=== PATIENT | female | born 1970 | race Caucasian/White ===

== ENCOUNTER → 2019-04-17 | Outpatient (CLI) | payer BC ==
[~2019-04-17] MED LIST: XANAX 0.25 MG0.25 MG PO
--- NOTE | 2019-04-24 12:06 | PATH ---
[address] [address] PATHOLOGY RPT PROCEDURE Name: SHIRLENE SNOW [facility] BARREIra.#: [id number] Admission: 04/17/19 Date of : 72 Discharge: Report #: [id number] Path Case #: [id number] [facility] Accession Number: [id number] . 01 Material submitted: . PART A: lymph node - LYMPH NODE BX - RIGHT AXILLA. Modifiers: right, axilla PART B: breast - RIGHT BREAST TISSUE/MASS, 7:00. Modifiers: right, 7:00 . 01 Clinical history: . A. Right lymph node-axilla B. Right breast mass 7:00 2.41 x 1.68 x 2.38 cm . 02 Diagnosis: A. Right axillary lymph node, image-guided biopsy: - METASTATIC DUCTAL ADENOCARCINOMA TYPICAL OF BREAST PRIMARY SPANNING AT LEAST 7 MM OF LYMPH NODE. SEE COMMENT. . B. Right breast tissue/mass, 7:00, image-guided core biopsies: - INFILTRATING DUCTAL ADENOCARCINOMA, INTERMEDIATE GRADE, SPANNING 13 MM IN ASSOCIATION WITH DUCTAL CARCINOMA IN SITU (DCIS), NUCLEAR GRADE II, SOLID AND CRIBRIFORM TYPES. SEE COMMENT. . (SOFIYA:lester; 04/19/2019) MBR 04/19/2019 1319 Local . 02 Comment: Specimen B Specimen type: Image-guided core biopsy Tumor site: Right breast 7:00 Tumor quantitation: Approximately 95% of submitted tissues. Histologic type: Ductal adenocarcinoma. Histologic grade: Intermediate (II of III). Tubules, nuclei and mitoses: 2, 2, 2. LVSI: Not identified. Microcalcifications: Not identified. Markers: Breast tumor profile pending. Block: B1 . In specimen A, there is no definite evidence of extranodal extension. Breast tumor profile studies are pending on B1 and will be the subject of an addendum report. Nicole (acting [facility] breast navigator) notified at approximately 1410 on 04/20/2019. Specimens A and B reviewed with Dr. Daryl Sewell who agrees with the diagnoses. . (SOFIYA:lester; 04/19/2019) . 02 Addendum: [place] [address] PATHOLOGY RPT PROCEDURE Name: SHIRLENE SNOW Room: [facility] BARRESilvia#: [id number] Admission: 04/17/19 Date of : 72 Discharge: Report #: [id number] Path Case #: [id number] Special studies report received from [facility], [facility], [address], [place], [address], on case [id number], labeled with their number [id number], dated 04/23/2019. . Breast/Prognostic Marker Analysis . Specimen Site: Rt Breast - Breast Cancer Specimen ID #: [id number] . ER (Estrogen Receptor) Present/Positive Percent: 90.00% Analysis: Manual Comments: Staining Intensity: Weak to Moderate. . MA (Progesterone Receptor) Present/Positive Percent: 90.00% Analysis: Manual Comments: Staining Intensity: Moderate. . HER2 Not Over-Expressed Score: 0 Analysis: Manual . Ki-67 High Proliferation Percent: 25.00% Analysis: Manual . Time to Fixation (Cold Ischemic Time): 1 Minute Duration of Fixation: 9 Hours 26 Minutes Type of Fixative: 10% Neutral Buffered Formalin . at [employer]. Ab Pond MD Pathologist . Methodology The HER2 Receptor protein expression is analyzed using the [place] HER2 rabbit monoclonal antibody (clone 4B5). This assay is used for diagnostic determination of the HER2 protein over-expression in paraffin embedded, formalin fixed breast cancer tissue on the [place] Benchmark. The specimen is processed using a secondary antibody-HRP conjugate detection system. The membrane staining of the tumor is determined either by manual score or image analysis. This antibody is intended for in vitro diagnostic use. The score is reported as 0, 1+, 2+, or 3+. This test [place] [address] PATHOLOGY RPT PROCEDURE Name: SHIRLENE SNOW Room: [facility] ManavOj#: [id number] Admission: 04/17/19 Date of : 72 Discharge: Report #: [id number] Path Case #: [id number] purposes. . A rabbit monoclonal antibody (clone SP1) that recognized the Estrogen Receptor is used to perform immunohistochemistry on routinely fixed (formalin) paraffin embedded tissue on the [place] Benchmark. The specimen is processed using a secondary antibody-HRP conjugate detection system. The percentage of stained tumor nuclei is determined either manually or by image analysis. This test is intended for in vitro diagnostic use. This test is used for clinical purposes. . A rabbit monoclonal antibody (clone 1E2) that recognized the Progesterone Receptor is used to perform immunohistochemistry on routinely fixed (formalin) paraffin embedded tissue on the [place] Benchmark. The specimen is processed using a secondary antibody-HRP conjugate detection system. The percentage of stained tumor nuclei is determined either manually or by image analysis. This test is intended for in vitro diagnostic use. This test is used for clinical purposes. . A rabbit monoclonal antibody (clone 30-9) that recognized Ki67 is used to perform immunohistochemistry on routinely fixed (formalin) paraffin embedded tissue on the [place] Benchmark. The specimen is processed using a secondary antibody-HRP conjugate detection system. The percentage of stained tumor nuclei is determined either manually or by image analysis. This test is intended for in vitro diagnostic use. This test is used for clinical purposes. . Intended Use: This antibody is intended for in vitro diagnostic (IVD) use. HER2 (4B5) is a rabbit monoclonal antibody intended for the semi-quantitative detection of HER2 antigen in sections of formalin-fixed, paraffin embedded normal and neoplastic tissue. . This antibody is intended for in vitro diagnostic (IVD) use. Estrogen Receptor (ER) (SP1) is a rabbit monoclonal antibody (IgG) that is intended for the qualitative detection of estrogen receptor (ER) antigen in sections of formalin-fixed, paraffin-embedded tissue. ER is a rabbit monoclonal antibody that recognizes human estrogen receptor alpha. . This antibody is intended for in vitro diagnostic (IVD) use. Progesterone Receptor (MA) (1E2) is a rabbit monoclonal antibody (IgG) that is intended for the qualitative detection of progesterone receptor (MA) antigen in sections of formalin fixed, paraffin embedded tissue. MA is a rabbit monoclonal antibody that recognizes the A and B forms of the human progesterone receptor. . This antibody is intended for in vitro diagnostic (IVD) use. Ki-67 (30-9) is a rabbit monoclonal antibody (IgG) directed against C-terminal portion of Ki-67 antigen. Staining for Ki-67 can be used to aid in assessing the proliferative activity of normal and neoplastic tissue. Ki-67 [place] [address] PATHOLOGY RPT PROCEDURE Name: SHIRLENE SNOW Room: [facility].#: [id number] Admission: 04/17/19 Date of : 72 Discharge: Report #: [id number] Path Case #: [id number] protein expressed in proliferating cells. During the cell cycle, the Ki-67 antigen is present in the G1, S, G2 and M phase but is absent in the G0 (quiescent phase). . . Disclaimer: This Test was performed by [employer] at [address], [address]. . [facility] is a business unit of [employer] a wholly-owned subsidiary of [employer]. . This assay has not been validated on decalcified tissues. Results should be interpreted with caution if this specimen was decalcified given the likelihood of false negativity on decalcified specimens. . Any image(s) that accompany this report is/are a security systems sales representative image(s) only and should not be used to render a diagnosis. . This interpretation is contingent on the specimen and the clinical information received. . For any special tests/stains performed, known positive cells or tissues are tested with each marker and examined to ensure positivity. Positive and negative internal controls, if present, react appropriately. . This analysis is an adjunct to the evaluation of the referring physician and does not represent a final diagnosis. . The immunohistochemistry tests performed at [employer]. were validated on tissue fixed in 10% neutral buffered formalin. The performance characteristics of the tests performed on tissue processed in other fixatives is not known. . HER2 testing at [employer] [employer] is performed in compliance with the 2018 updated ASCO/CAP Clinical Practice Guideline Focused Update. If the result is EQUIVOCAL (2+), it must be confirmed by an alternative assay such as FISH or Dual DELORIS. REF: Morris DEL RIO, JAZ Ha et al: Human Epidermal Growth Factor Receptor 2 Testing in Breast Cancer: ASCO/CAP Clinical Practice Guideline Focused Update. J Clin Oncol 36:5887-0538, 2018. . HER2 and ER/MA ASCO/CAP guidelines require fixation in neutral buffered formalin for a minimum of 6 and a maximum of 72 hours. Fixation times less than 6 hours may not adequately preserve cell proteins. Fixation times longer than 72 hours may cause excess cross-linking of proteins reducing the antigen available for staining. Either scenario can cause reduced staining; hence false negative results are possible and should be [address] [place] [address] PATHOLOGY RPT PROCEDURE Name: EDYSHIRLENE SAAVEDRA Room: [facility] AMADEO Colon#: [id number] Admission: 04/17/19 Date of : 72 Discharge: Report #: [id number] Path Case #: [id number] considered for these situations if the HER2 IHC score is less than 3+ or ER or MA is negative (no staining or <1% positive). It is recommended that specimens fixed longer than 72 hours with HER2 IHC scores less than 3+ be confirmed by HER2 FISH or Dual DELORIS. The time from biopsy/excision to fixation in formalin (cold ischemic time) must be less than 1 hour. Time to fixation (cold ischemic time) greater than 1 hour should be interpreted with caution. HER2 testing, mainly HER2 by FISH, is particularly vulnerable since excessive cold ischemic time results in preferential loss of HER2 probe signals that may lead to false negative results. . SCORE STAINING PATTERN IN TUMOR CELLS INTERPRETATION RESULTS 0 No staining observed or incomplete, faint membrane staining in less than or equal to 10% of tumor cells. Negative 1+ Incomplete, faint membrane staining in greater than 10% of tumor cells. Negative 2+ Weak to moderate complete membrane staining observed in greater than 10% of tumor cells. Equivocal* *Must be confirmed by alternative assay (IHC/FISH/Dual DELORIS) 3+ Intense, complete membrane staining in greater than 10% of tumor cells. Positive . A complete copy of the report is on file. . Professional and Technical services performed by [employer]. at [address] [address]. . (SOFIYA:amj 04/24/2019) . AZJ/04/24/2019 Addendum Electronically Signed by Galen Daniels MD, Pathologist . 02 Electronically signed: . Galen Daniels MD, Pathologist NPI- [id number] . 01 Gross description: . A. Received in formalin labeled "Edy, Shirlene, lymph node BX," and additionally labeled on the requisition as "right axilla," are 3 needle cores of yellow-mcclain fibrofatty tissue ranging from 0.1 to 2.5 cm in length and measuring less than 0.1 cm each in diameter. The tissue is submitted in its entirety in cassettes A1-A3. Due to the minute nature of the segments in cassettes A2 and A3, they may [place] [address] PATHOLOGY RPT PROCEDURE Name: SHIRLENE SNOW Room: [facility]#: [id number] Admission: 04/17/19 Date of : 72 Discharge: Report #: [id number] Path Case #: [id number] . B. Received in formalin labeled "EdyShirlene, right breast biopsy," and additionally labeled on the requisition as "7:00," are 3 distinct needle cores of yellow-mcclain fibrofatty tissue ranging from 1.3-1.8 cm in length and measuring 0.2 cm in diameter. The tissue is submitted in its entirety in cassettes B1-B3. The cold ischemic time is 1 minute. The total formalin fixation time is 9 hours and 26 minutes. (TSD; 04/18/2019) TOB/TOB 04/19/2019 1306 Local . 02 Pathologist provided ICD-10: C77.3, C50.911, D05.11 . 02 CPT . 879341, 248453 Specimen Comment: A courtesy copy of this report has been sent to [phone] Specimen Comment: [phone], Specimen Comment: Report sent to ,DR MIMS / DR LABOY Performed at: 01 [facility] [place] [address], [place], [place] [id number] MD Chano Monteiro MD Phone: [phone] Performed at: 02 [facility] [address], [place], [place] [id number] MD Galen Daniels MD Phone: [phone]
== END ==
LOC: M.RAD 12:52
DX: N63.14 Unspecified lump in the right breast, lower inner quadrant (principal)

== ENCOUNTER → 2019-04-18 | Outpatient (CLI) | payer BC | END | disposition home or self-care (01) | LOC: M.ULTRA 12:52 | DX: C50.911 Malignant neoplasm of unspecified site of right female breast (principal); C77.3 Secondary and unspecified malignant neoplasm of axilla and upper limb lymph nodes; F41.9 Anxiety disorder, unspecified; Z88.8 Allergy status to other drugs, medicaments and biological substances; Z98.890 Other specified postprocedural states ==

== ENCOUNTER → 2019-04-26 | Outpatient (CLI) | payer BC | LOC: M.MRI 14:29 | DX: N63.13 Unspecified lump in the right breast, lower outer quadrant (principal) ==

== ENCOUNTER → 2019-05-07 | Outpatient (CLI) | payer BC ==
--- NOTE | 2019-05-07 15:14 | 2DMMODE ---
[place] [address] 2 D/M-MODE ECHOCARDIOGRAM Name: SHIRLENE SNOW Room: [facility]#: [id number] Admission: 05/07/19 Attend Phys: Kamala Verduzco MD Discharge: Date of : 72 Date of Service: 05/07/19 1514 Report #: [id number] THIS REPORT FOR: //name// APPROVED REPORT Study performed: 05/07/2019 12:18:04 EXAM: Comprehensive 2D, Doppler, and color-flow Echocardiogram Patient Location: Out-Patient BSA: 1.77 HR: 78 bpm BP: 125/70 mmHg Other Information Study Quality: Good Indications Pre-Chemo Breast Cancer 2D Dimensions IVSd: 10.26 (7-11mm) LVOT Diam: 20.69 (18-24mm) LVDd: 46.22 mm PWd: 9.91 (7-11mm) Ascending Ao: 31.57 (22-36mm) LVDs: 29.08 (25-40mm) Aortic Root: 27.41 mm Volumes Left Atrial Volume (Systole) LA ESV Index: 23.00 mL/m2 Aortic Valve AoV Peak Calixto.: 1.20 m/s AO Peak Gr.: 5.80 mmHg LVOT Max P.64 mmHg AO Mean Gr.: 3.12 mmHg LVOT Mean P.64 mmHg LVOT Max V: 0.95 m/s AO V2 VTI: 22.59 cm LVOT Mean V: 0.58 m/s MER (VTI): 3.00 cm2 LVOT V1 VTI: 20.12 cm Mitral Valve E/A Ratio: 1.00 MV Decel. Time: 182.33 ms MV E Max Calixto.: 0.61 m/s MV PHT: 52.[place] [address] 2 D/M-MODE ECHOCARDIOGRAM Name: SHIRLENE SNOW Room: [facility]#: [id number] Admission: 05/07/19 Attend Phys: Kamala Verduzco MD Discharge: Date of : 72 Date of Service: 05/07/19 1514 Report #: [id number] MVA (PHT): 4.16 cm2 TDI E/Lateral E': 4.07 E/Medial E': 6.10 Medial E' Calixto.: 0.10 m/s Lateral E' Calixto.: 0.15 m/s Pulmonary Valve PV Peak Calixto.: 0.89 m/s PV Peak Gr.: 3.18 mmHg Left Ventricle The left ventricle is normal size. There is normal LV segmental wall motion. There is normal left ventricular wall thickness. Left ventricular systolic function is normal. The left ventricular ejection fraction is within the normal range. LVEF is 55-60%. The left ventricular diastolic function is normal. Right Ventricle The right ventricle is normal size. The right ventricular systolic function is normal. Atria The left atrium size is normal. The right atrium size is normal. Aortic Valve The aortic valve is normal in structure. No aortic regurgitation is present. There is no aortic valvular stenosis. Mitral Valve The mitral valve is normal in structure. Mild mitral regurgitation. No evidence of mitral valve stenosis. Tricuspid Valve The tricuspid valve is normal in structure. There is no tricuspid valve regurgitation noted. Pulmonic Valve The pulmonary valve is normal in structure. Trace pulmonic regurgitation. Great Vessels The aortic root is normal in size. IVC is normal in size and collapses >50% with inspiration[place] [address] 2 D/M-MODE ECHOCARDIOGRAM Name: SHIRLENE SNOW [id number] Admission: 05/07/19 Attend Phys: Kamala Verduzco MD Discharge: Date of : 72 Date of Service: 05/07/19 1514 Report #: [id number] There is no pericardial effusion. <Conclusion> The left ventricle is normal size. There is normal left ventricular wall thickness. Left ventricular systolic function is normal. The left ventricular ejection fraction is within the normal range. LVEF is 55-60%. The left ventricular diastolic function is normal. The left atrium size is normal. The aortic valve is normal in structure. The mitral valve is normal in structure. Mild mitral regurgitation. The tricuspid valve is normal in structure. IVC is normal in size and collapses >50% with inspiration. There is no pericardial effusion. There is normal LV segmental wall motion. <ELECTRONICALLY SIGNED> By: Arya Mehta MD, FACC 05/07/19 1514 1514 151 Arya Mehta MD, FACC /INF
== END ==
LOC: M.CRD 05-04 15:25 → M.LAB 12:06 → M.CRD 13:00
DX: R07.9 Chest pain, unspecified (principal); R06.02 Shortness of breath; E04.1 Nontoxic single thyroid nodule; I34.0 Nonrheumatic mitral (valve) insufficiency; Z85.3 Personal history of malignant neoplasm of breast

== ENCOUNTER → 2019-05-15 | Outpatient (CLI) | payer BC ==
[~2019-05-15] VITALS: Ht 157.5 cm; Wt 75.3 kg
[2019-05-15 08:56] VITALS: BP 125/81
[2019-05-15 09:09] LABS: HEMATOCRIT 29.2 % (37.0-47.0); HEMOGLOBIN 9.1 gm/dL (12.0-15.0); MCH 21.9 pg (26.0-34.0); MCHC 31.3 g/dL (28.0-37.0); MPV 9.3 fl. (7.2-11.1); RBC 4.17 mil/uL (4.20-5.00); RDW-CV 17.6 % (10.5-14.5); WBC 5.8 thou/uL (4.0-11.0)
[2019-05-15 09:18] LABS: CALCIUM 7.8 mg/dL (8.5-10.1); CREATININE 0.8 mg/dL (0.6-1.3); POTASSIUM 3.8 mmol/L (3.5-5.1)
[2019-05-15 09:22] LABS: ALBUMIN 3.9 g/dL (3.4-5.0); TOTAL BILIRUBIN 0.3 mg/dL (<0.1-1.0); TOTAL PROTEIN 7.8 g/dL (6.4-8.2)
[2019-05-15 11:15] VITALS: BP 105/75
[2019-05-15 11:30] VITALS: BP 113/72
[2019-05-15 11:45] VITALS: BP 113/75
[2019-05-15 12:00] VITALS: BP 113/73
== END | disposition home or self-care (01) ==
LOC: M.INT 08:25
PROVIDERS: Radiology Diagnostic Radiology
DX: Z45.2 Encounter for adjustment and management of vascular access device (principal); C50.911 Malignant neoplasm of unspecified site of right female breast; F41.9 Anxiety disorder, unspecified; Z83.3 Family history of diabetes mellitus; Z88.8 Allergy status to other drugs, medicaments and biological substances; Z98.890 Other specified postprocedural states; Z79.899 Other long term (current) drug therapy

== ENCOUNTER → 2019-09-18 | Outpatient (CLI) | payer BC | LOC: M.MRI 11:05 | DX: C79.89 Secondary malignant neoplasm of other specified sites (principal); C50.511 Malignant neoplasm of lower-outer quadrant of right female breast; R92.2 Inconclusive mammogram; Z17.0 Estrogen receptor positive status [ER+] ==

== ENCOUNTER → 2019-10-30 | Day surgery (SDC) | payer BC ==
[~2019-10-30] MED LIST changes: +HAIR, SKIN & N1 EAC2 PO; +IRON325 PO; +OXYCODONE HCL 55 MG PO; +XANAX 0.5 MG0.5 MG PO; +XANAX1 MG PO
--- NOTE | 2019-11-01 08:03 | OP ---
[address] [address] OPERATIVE REPORT Name: SHIRLENE SNOW Room: [facility].#: [id number] Admission: 10/30/19 Attend Phys: Lizzette Blair DO Discharge: Date of : 72 Report #: [id number] THIS REPORT FOR: //name// cc: Eliska. ARSENIO Ureña Eliska. ARSENIO ~ THIS REPORT FOR: //name// CC: Lizzette Ureña DATE OF SERVICE: 10/30/2019 PREPROCEDURE DIAGNOSIS: Right breast cancer, status post neoadjuvant chemotherapy. POSTOPERATIVE DIAGNOSIS: Right breast cancer, status post neoadjuvant chemotherapy. FINDINGS: Hologic seed in the right breast, chemo port on the left chest. No blue dye was identified in the axilla and the only uptake that could be found with the Neoprobe was on the axillary vein. The sentinel lymph node dissection field and full axillary lymph node dissection was undertaken. SURGEON: Lizzette Blair DO COSURGEON: Irma Monson, PGY2. DUST MIXER: Harsh Taylor, PGY1. PROCEDURE PERFORMED: Right breast seed guided lumpectomy, attempted right sentinel lymph node dissection with completion axillary lymph node dissection and removal of chemo port. ANESTHESIA: LMA and local. ESTIMATED BLOOD LOSS: 40 mL. SPECIMENS: Right breast lumpectomy and right axillary lymph node dissection. DRAINS: 10-Hait[place] DARINEL drain in the right axilla. COMPLICATIONS: None. CONDITION: Stable. DISPOSITION: PACU to home. [address] [address] OPERATIVE REPORT Name: EDYSHIRLENE Room: [facility].#: [id number] Admission: 10/30/19 Attend Phys: Lizzette Blair DO Discharge: Date of : 72 Report #: [id number] HISTORY OF PRESENT ILLNESS: The patient is a very pleasant 48-year-old female who presented to my office several months ago with findings of a right breast cancer. She underwent neoadjuvant chemotherapy with what appeared to be complete resolution of the right breast cancer and her right axillary lymphadenopathy. She was then consented for a right breast clipper wire-guided lumpectomy, right sentinel lymph node dissection with frozen section and possible completion axillary lymph node dissection and removal of her chemo port. Risks discussed included bleeding, infection, pain, scar formation, injury to nerve and vein or artery causing chronic pain, numbness or swelling, need for further surgery and risks of general anesthesia. The patient understood these risks and elected to proceed. The patient presented to the hospital several days prior to her procedure. DESCRIPTION OF PROCEDURE: Received a hologic seed in the right breast. The morning of surgery, she was then also taken to Radiology where she underwent a nuclear medicine injection in the right breast. She then returned to preop where she underwent informed consent. She was then taken to the operating room where she was laid supine on the operating room table. SCDs were placed on bilateral lower extremities. Ancef was given in the perioperative period. General LMA anesthesia was induced by Anesthesia without difficulty. Right breast and left chest were all prepped and draped in the standard sterile fashion. Timeout was performed to verify patient and procedure. A 5 mL of Lymphazurin blue dye were injected in the right periareolar area. Hologic probe was then brought on to the field and the area of the seed was identified. A 10 mL of 0.5% Marcaine were injected in the periareolar area. Curvilinear periareolar incision was made with #15 blade. Cautery was used for hemostasis. Then, using the hologic seed for guidance, we dissected down to the area of interest. This area was then elevated using an Allis clamp and a lumpectomy specimen was formed. The lumpectomy specimen was again interrogated with the hologic probe to verify that we had good margins. The mass was marked in the superior and lateral direction and was then sent to Radiology for mammography. The radiologist did return a phone call indicating that we had the seed, the clip and what appeared to be an excellent specimen. Hemostasis was assured within the cavity. We then turned our attention to the right axilla. Neoprobe was brought on to the field and the area of the nipple was interrogated. Our highest uptake was approximately 9000. The Neoprobe was then used to interrogate the right axilla, a very little to no uptake was noted in the axilla. Supraclavicular area and the sternum were also interogated without any uptake. An incision was then planned just inferior to the hair bearing area. A 10 mL of 0.5% Marcaine were injected at the site of the planned incision. Incision was then made with #15 blade. Cautery was used for hemostasis. Cautery was used to dissect down through subcutaneous tissues. Weitlaner retractor was then placed within the axilla. Neoprobe was then returned into the axilla and we attempted to find some uptake. A highest uptake that we got [address] [address] OPERATIVE REPORT Name: SHIRLENE SNOW Room: [facility]#: [id number] Admission: 10/30/19 Attend Phys: Lizzette Blair DO Discharge: Date of : 72 Report #: [id number] initially on the Neoprobe was only in the 20s and 30s. We then began to gently dissect down through the axillary tissue hoping that we would see blue dye. At one point, a very thin tracing of blue dye was noted heading straight to the axillary vein. This was followed superiorly, again continuing to use a Neoprobe without any success. Finally, we had some uptake in the 90s on the Neoprobe with this, but this was actually on the axillary vein itself. Multiple attempts were taken to identify any further blue dye or any Neoprobe uptake without any success. After about an hour of attempting to identify a sentinel lymph node, we then decided to proceed with a full axillary lymph node dissection. At this point, the entirety of the axillary vein had already been cleared of any axillary tissue, so the axillary tissue was gently elevated. Moving inferiorly, the entirety of the axillary contents were removed. Any arteries or veins were doubly clipped and ligated. Care was taken to avoid the nerve. The chest wall was completely cleared of any axillary contents all the way to the latissimus dorsi. Contents of the axilla were then handed off for permanent pathology. The cavity was then inspected. It appeared to be hemostatic. It was copiously irrigated until clear. Again, we verified that we could clearly see the entirety of the axillary vein and the chest wall. A 10-Haitian DARINEL drain was then brought in through the inferior aspect of the cavity and was placed within the wound. FloSeal was introduced in both the axillary cavity and the right breast cavity. Both these wounds were then closed in a layered fashion using deep and superficial stitches of 3-0 Vicryl in inverted interrupted fashion. Skin wounds were closed with running 4-0 Monocryl. We then turned our attention to the left chest. A 10 mL of 0.5% Marcaine were injected in the area of the chemo port. Old incision was reopened using a #15 blade. Cautery was used for hemostasis. Then, using a combination of blunt and cautery dissection, we dissected down until the chemo port was visualized. It was then easily explanted as there were no stitches. Pressure was held over the left chest as the entirety of the port was removed. The device was closely inspected and appeared to be intact. It was then handed off. Wound was irrigated. Wound was then closed in a layered fashion using deep and superficial stitches of 3-0 Vicryl in inverted interrupted fashion. Skin wound was closed with running 4-0 Monocryl. All wounds were then cleansed and covered with skin glue. The patient was then allowed to awaken from anesthesia, was extubated and transported to the recovery room with no further difficulties. Counts were correct x 2 at the conclusion of the case. <ELECTRONICALLY SIGNED> By: Lizzette Blair DO 11/01/19 0803 1327 1404Clilian Blair DO /nt
--- NOTE | 2019-11-09 17:08 | PATH ---
[address] [address] PATHOLOGY RPT PROCEDURE Name: SHIRLENE SNOW Room: [facility] M.R.#: [id number] Admission: 10/30/19 Date of : 72 Discharge: Report #: [id number] Path Case #: [id number] [facility] Accession Number: [id number] . 01 Material submitted: . PART A: breast - RIGHT BREAST LUMPECTOMY. Modifiers: right PART B: lymph node - RIGHT AXILLARY LYMPH NODES. Modifiers: right, axillary tail . 01 Clinical history: . 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 . 02 Diagnosis: A. Breast "right breast lumpectomy": - INVASIVE DUCTAL CARCINOMA WITH ASSOCIATED DUCTAL CARCINOMA IN SITU (DCIS): - Forming a 1.4 x 1.0 cm mass - All margins negative for malignancy, with closest, anterior, located 0.5 mm away. - Partial treatment response. - Biopsy marker identified. - Background fibrocystic change. - Please see cancer synoptic outlined below. . B. Lymph nodes "right axillary sentinel nodes", excision: - Metastatic ductal adenocarcinoma typical of breast, present in 2 (of 8) lymph nodes, spanning 4mm and 5mm, both confined to lymph node, with partial tumor response in 1 node. . - Intransient focus of tumor identified in axillary soft tissue. See comment. (EVAN:lester; 11/08/2019) . . Surgical Pathology Cancer Case Summary . Procedure ___ Other: Lumptectomy . Specimen Laterality ___ Right . + Tumor Site + ___ Not specified . Tumor Size ___ 1.4 x 1 [place] [address] PATHOLOGY RPT PROCEDURE Name: SHIRLENE SNOW Room: [facility] M..#: [id number] Admission: 10/30/19 Date of : 72 Discharge: Report #: [id number] Path Case #: [id number] . Histologic Type ___ Invasive carcinoma of no special type . Glandular (Acinar)/Tubular Differentiation ___ Score 2 (10% to 75% of tumor area forming glandular/tubular structures) . Nuclear Pleomorphism ___ Score 2 (cells larger than normal with open vesicular nuclei, visible nucleoli, and moderate variability in both size and shape) . Mitotic Rate ___ Score 1 . Overall Grade ___ Grade 2 (scores of 6 or 7) . + Tumor Focality + ___ Single focus of invasive carcinoma . Ductal Carcinoma In Situ (DCIS) ___ Present . + Architectural Patterns (of DCIS) + ___ Cribriform . + Nuclear Grade (of DCIS) + ___ Grade II (intermediate) . + Necrosis + ___ Not identified . + Lobular Carcinoma In Situ (LCIS) + ___ Not identified . Margins ___ Uninvolved by invasive carcinoma Distance from closest margin (millimeters): ___ Specify 0.5 mm (anterior margin) . DCIS Margins ___ Uninvolved by DCIS . Regional Lymph Nodes Total Number of Lymph Nodes Examined: 8 Number of Lymph Nodes with Macrometastases (>2 mm): 2 . [place] [address] PATHOLOGY RPT PROCEDURE Name: SHIRLENE SNOW Room: [facility].#: [id number] Admission: 10/30/19 Date of : 72 Discharge: Report #: [id number] Path Case #: [id number] ___ Not identified . Treatment Effect in the Breast ___ Probable or definite response to presurgical therapy in the invasive carcinoma . Treatment Effect in the Lymph Nodes ___ Probable or definite response to presurgical therapy in metastatic carcinoma . + Lymphovascular Invasion + ___ Present . PATHOLOGIC STAGE CLASSIFICATION (pTNM, AJCC 8th ed.) . TNM Descriptor . ---y (posttreatment) . Primary Tumor (pT) ___ pT1c:Tumor >10 mm but =20 mm in greatest dimension . Regional Lymph Nodes ___ pN1a:Metastases in 1 to 3 axillary lymph nodes, at least 1 metastasis larger than 2.0 mm . + Ancillary Studies + ___ Breast Biomarker Testing Performed on Previous Biopsy [facility] 11/09/2019 1620 Local . 02 Comment: A minute focus of tumor is seen in fat of one of the bisected halves of B7, without breast epithelial tissues or lymph node (small benign lymph node is seen in the other half of tissue) and is interpreted as involvement of a lymphovascular space. . The case was seen in co-review with Dr. Galen Daniels who concurs with the above diagnoses. . This case was prepared and proofread by Dr. Gilmer Campos and electronically released by Dr. Daniels. . (MLK:lester; 11/08/2019) . 02 Electronically signed: . Galen Daniels MD, Pathologist NPI- [id number] . [address] [place] [address] PATHOLOGY RPT PROCEDURE Name: SHIRLENE SNOW Room: [facility].#: [id number] Admission: 10/30/19 Date of : 72 Discharge: Report #: [id number] Path Case #: [id number] Gross description: . A. The specimen is received in formalin, labeled "Shirlene Snow, right breast lumpectomy" and consists of an oriented 38 g lumpectomy specimen with a long suture lateral and short superior. It measures 7.0 cm S-I, 6.0 cm L-M, 1.6 cm A-P, and is inked as follows: superior-blue, inferior-green, medial-red, lateral-yellow, anterior-orange, and posterior-black. It is sectioned from superior to inferior into 19 slices revealing a stellate mcclain-white mass in slices 12-14 measuring 1.4 x 1.0 cm that is to margins as follows: 0.1 cm anterior, 0.5 cm posterior, 0.4 cm inferior/medial, greater than 2 cm superior, greater than 1 cm inferior. Present in slice 8-9 is a cylindrical biopsy marker. The uninvolved parenchyma consists of yellow lobulated tissue with approximately 10% dense fibrous streaks. No additional masses or lesions are identified. The specimen is representatively submitted as follows: . A1: Slice 1 superior, perpendicular A3-A5: Slice 11 inferior to mass A6-A8: Slice 12 A9-A11: Slice 13 A12-A13: Slice 14 A14-A15: Slice 15 inferior to mass A16: Slice 19 inferior, perpendicular . The specimen was collected at 11:07 AM on 10/30/2019 and placed in formalin at 11:15 AM. The cold ischemic time is 8 minutes and the total formalin fixation time is greater than 6 hours less than 72 hours., . B. The specimen is received in formalin, labeled "Shirlene Snow, right axillary sentinel nodes" and consists of a 6.7 x 4.8 x 1.8 cm segment of yellow lobulated tissue. Present within are multiple lymph nodes measuring between 0.1 cm and 2.0 cm which are entirely submitted as follows: . B1-B2: Largest lymph node, serially sectioned B3: One bisected lymph node B4: 1 serially sectioned lymph node candidate B5: One bisected lymph node B6: 4 intact lymph node candidates B7: 2 bisected lymph nodes, one black (SDY; 10/31/2019) SYU/SYU 11/09/2019 1554 Local . 02 Microscopic: . Immunohistochemical stain results: . AE1/AE3 (blocks A3, A7, A10, A11, A12) - positive in ductal epithelial cells and invasive carcinoma. (MLK:supervisor floor assembly; 11/08/2019) . [address] [address] PATHOLOGY RPT PROCEDURE Name: SHIRLENE SNOW Room: [facility] M.R.#: [id number] Admission: 10/30/19 Date of : 72 Discharge: Report #: [id number] Path Case #: [id number] Pathologist provided ICD-10: C50.911, D05.11, C77.3 . 02 CPT . 565286, [id number], [id number] Specimen Comment: A courtesy copy of this report has been sent to [phone] Specimen Comment: [phone] Specimen Comment: Report sent to / DR MIMS Performed at: [address], [place], [place] [id number] MD Chano Monteiro MD Phone: [phone] Performed at: 02 [facility] [address], [place], [place] [id number] MD Galen Daniels MD Phone: [phone]
== END | disposition home or self-care (01) ==
LOC: M.NUC 08:00 → M.SUR 08:00 → EDSTATUS 08:00 → M.SUR 08:30 → M.RAD 09:00
DX: C50.911 Malignant neoplasm of unspecified site of right female breast (principal); C77.3 Secondary and unspecified malignant neoplasm of axilla and upper limb lymph nodes; R59.0 Localized enlarged lymph nodes; F41.9 Anxiety disorder, unspecified; Z98.890 Other specified postprocedural states; Z79.899 Other long term (current) drug therapy; Z88.8 Allergy status to other drugs, medicaments and biological substances; Z80.3 Family history of malignant neoplasm of breast; Z80.1 Family history of malignant neoplasm of trachea, bronchus and lung; Z82.49 Family history of ischemic heart disease and other diseases of the circulatory system